=== PATIENT | male | born 1990 | race Caucasian/White ===

== ENCOUNTER 2019-02-21 13:57 | Emergency (ER) | payer SELFPAY ==
[~2019-02-21] VITALS: Ht 160 cm; Wt 84.3 kg
[~2019-02-21 13:57] MED LIST: HYDR-4011 PO; NAPR-985 PO
[2019-02-21 14:22] VITALS: BP 142/87; PULSE 87; RESP 20; Ht 160 cm; Wt 84.3 kg
[2019-02-21] MEDS ORDERED: ONDANSETRON (ODT) 4 MG TAB ODT STA (14:45)
[2019-02-21] MEDS ORDERED: DIPHTH/TET/ACEL PERTUSS (ADULT) 0.5 ML VIAL IM* ONE (15:00)
[2019-02-21] MEDS ORDERED: HYDROCODONE/APAP (5/325) TAB PO ONE (15:00)
== END 2019-02-21 16:12 | disposition home or self-care (01) ==
LOC: FTE 13:57
DX: S02.2XXA Fracture of nasal bones, initial encounter for closed fracture (principal); W01.0XXA Fall on same level from slipping, tripping and stumbling without subsequent striking against object, initial encounter; Y92.89 Other specified places as the place of occurrence of the external cause; Z23 Encounter for immunization
CPT/HCPCS: 70160; 90471; 90715